=== PATIENT | male | born 1990 | race Hispanic/Latino ===

== ENCOUNTER → 2022-05-24 | Outpatient (CLI) | payer BC, SELFPAY | END | disposition home or self-care (01) | LOC: MTLAB 16:43 | PROVIDERS: Referring Provider Internal Medicine Gastroenterology; Visit Provider Internal Medicine Gastroenterology | DX: B18.2 Chronic viral hepatitis C (principal) | CPT/HCPCS: 36415; 82105; 87522; 87902 ==